=== PATIENT | female | born 1995 | race Caucasian/White ===

== ENCOUNTER 2024-10-18 08:35 | Outpatient (AMB) | payer OTHER, SELFPAY ==
--- OUTSIDE RECORDS SUMMARY | 2024-10-18 08:43 | XMS_ITS | Data Portability ---
Author Organization [facility], Main Office Address [address] [facility] [address] [place] [id number] Care Team Providers Care Clerical Adjuster Name Role Phone [facility] Middleware Solutions Architect VIRAL KEVIN Primary Care Provider [phone] Assessment Encounter Date Assessment Date Assessment LastModified by Organization Details LastModified Time 09/06/2024 09/06/2024 This service was provided using telemedicine. Patient consented to video & audio visit Patient was located other than home in the [facility]. Provider was located in the office. No other persons participated in the telemedicine visit except for the patient unless otherwise indicated here. Total time of visit was 16 minutes. [email or web address] Not available 09/06/2024 16:34:12 Plan of Treatment Reminders Order Date Submit Date Provider Last Modified By Organization Details Last Modified Time Details Appointments TELEHE ALTH15 2024 04:00P M Viral Kevin MD Not available Not available Not available Lab giardi a lambli a Ag, EIA, stool 2024 025 [facility], [address] [place], [address], 09/17/2024 08:07:22 gastro intest inal pathog ens panel, cultur e, stool 2024 025 [facility], [address] [place], [address], 09/17/2024 08:07:21 celiac diseas e serolo gy panel, serum 05/20/ 2025 05/20/2 025 [facility] (Centralized Electronic Ordering - All Locations), Patient Can Go To The Location Of Their Choice, 09/13/2024 20:08:52 Hepati tis C IgG Ab, qual, serum 2024 025 [facility], [address], [place], [address], 09/08/2024 12:06:01 HBsAg (hepat itis B surfac e Ag), EIA, serum 2024 025 [facility], [address], [place], [address], 09/08/2024 12:06:03 HIV 1 + 2, meanin gful use set 2024 025 [facility], [address], [place], [address], 09/08/2024 12:06:02 trepon mynor pallid um IgG + IgM Ab, QL, IA, serum 2024 025 [email or web address] [facility] (Centralized Electronic Ordering - All Locations), Patient Can Go To The Location Of Their Choice, 09/05/2024 10:29:05 CT + NG RNA, PCR, unspec ified specim en 2024 025 [email or web address] [facility] (Centralized Electronic Ordering - All Locations), Patient Can Go To The Location Of Their Choice, 09/05/2024 10:29:05 hepati tis B core IgM Ab, qual, serum or plasma 2024 025 [email or web address] [facility] (Centralized Electronic Ordering - All Locations), Patient Can Go To The Location Of Their Choice, 09/05/2024 10:29:05 lipid panel, serum 2024 025 [facility], [address] [facility], [facility], [place], [address], 09/08/2024 12:06:00 CBC w/ auto diff 2024 025 [facility], [address], [address], [place], [place], [address], 09/08/2024 12:06:00 TSH, ultra- sensit domi, serum 2024 025 [facility], [address], [address], [place], [place], [address], 09/08/2024 12:06:02 CMP, serum or plasma 2024 025 GRANT [facility] (Centralized Electronic Ordering - All Locations), Patient Can Go To The Location Of Their Choice, [id number] 09/08/2024 12:05:59 RPR (rapid plasma reagin ), titer, serum 2021 022 [facility], [address], [address], [place], [address], 12/16/2021 15:50:49 HIV 1+2 AB + HIV 1 p24 Ag, qualit ative immuno assay, serum 2021 022 [facility], [address], [address], [place], [place], [address], 12/16/2021 15:50:50 HBsAg (hepat itis B surfac e Ag), serum 2021 022 [facility], [address], [address], [place], [place], [address], 12/16/2021 15:50:50 hbcab (hepat itis B core Ab) igm, serum 2021 022 [facility], [address], [address], [place], [address], 12/16/2021 15:50:49 CT + NG DNA, PCR, urine 2021 022 [facility], [address], [address], [place], [address], 12/30/2021 09:20:20 hepati tis C virus Ab, serum 2021 [facility], [address] [place] [address], [facility] [address], [place], [address], 12/16/2021 15:50:49 lipid panel, serum 2021 [email or web address], [address] [place] [address], [facility] [address], [place], [place], [address], 06/24/2022 09:05:44 CBC w/ auto diff 2021 [facility], [address] [place] [address], [facility] [address], [place], [address], 12/16/2021 15:50:49 TSH, serum or plasma 2021 022 [facility], [address] [place] [address], [facility] [address], [place], [place], [address], 12/16/2021 15:50:50 CMP, serum or plasma 2021 022 [facility], [address] [place] [address], [facility] [address], [place], [place], [address], 12/16/2021 15:50:48 Referral dermat herve t referr al 2024 025 [email or web address] Not available 08/29/2024 15:37:26 neurol ogist referr karissa - pt has a histor y of headac hes and recent ly on CT and MRI noted to be a calcif icatio n on 1 cm indete rminat e focus of calcif icatio n noted in the left tempor al lobe. 2024 025 naina Schneider MD, [address] [place] [address] Dr, [address], [place], [address], 09/30/2024 12:58:22 gyneco logist referr al - Patien t to schedu le 2024 025 [email or web address] Not available 08/29/2024 15:37:26 psycho logist referr al 2024 025 [email or web address] Not available 08/29/2024 15:37:26 neurol ogist referr al - URGENT pt is zuleyma gottlieb is in [place], pt has a histor y of headac hes and recent ly on CT and MRI noted to be a calcif icatio n on 1 cm indete rminat e focus of calcif icatio n noted in the left tempor al lobe. 2022 023 YUMIKO Schneider MD, [address] [place] [address] , [place] [address], [place], [place], [address], 09/19/2024 11:58:33 psycho logist referr al 2021 022 [email or web address] Not available 07/22/2022 16:28:54 dermat ologis t referr al 2021 022 [email or web address] Not available 12/17/2021 08:59:04 ophtha lmolog ist referr al 2021 022 Not available 12/17/2021 14:52:39 gyneco logist referr al - Patien t to schedu le 2021 022 Not available 12/17/2021 08:57:25 Procedures suture remova l (PROC) 2022 023 [email or web address] In-Office Order, Internal Use Only DO Not Attach Compendium DO Not Attach Compendium, Do Not Delete/merge, [id number] 05/30/2022 13:11:25 Surgeries None record ed. Imaging None record ed. Medication Orders None record ed. Patient TargetsNo targets recorded. Patient Instructions Encounter Date Encounter Id Patient Instructions Last Modified By Organization Details Last Modified Time 12/16/2021 [id number] Well Visit, Ages 18 to 65: Care Instructions [email or web address] Not available 12/16/2021 15:50:33 Cervical Cancer Screening ckokar Not available 12/16/2021 15:50:33 When You Want to Lose Weight: Care Instructions ckokar Not available 12/16/2021 15:50:33 05/30/2022 [id number] At [facility] follow up visit, all current and discharge medications (OTC, herbal therapies, supplements) reviewed and reconciled with patient and or caregiver, including potential side effects, drug interactions, instructions, and the consequences of not taking medication. Reviewed potential barriers to medication adherence, such as side effects from medication or cost of medication. [email or web address] Not available 05/30/2022 09:29:55 08/29/2024 [id number] Well Visit, Ages 18 to 65: Care Instructions [email or web address] Not available 08/29/2024 15:11:18 Cervical Cancer Screening ckokar Not available 08/29/2024 15:11:18 When You Want to Lose Weight: Care Instructions [email or web address] Not available 08/29/2024 15:11:18 body mass index: care instructions ckokar Not available 08/29/2024 15:11:18 learning about healthy weight ckokar Not available 08/29/2024 15:11:18 09/06/2024 [id number] diarrhea: care instructions pmadden Not available 09/06/2024 16:35:26 Follow up if no improvement or if symptoms worsen. pmadden Not available 09/06/2024 16:35:57 Reason for Referral Middleware Solutions Architect Referral for Sc reening for malignant neoplasm of cervix Patient to schedule Referring Physician: Family Swathi Medicine, Encounter Date: 12/16/2021 Technical Internship Referral for M elanocytic nevus of skin Referring Physician: Family Swathi Medicine, Encounter Date: 12/16/2021 Warehouse Foreman Referral for Red right eye Referring Physician: Family Swathi Medicine, Encounter Date: 12/16/2021 Psychologist Referral for Po sitive screening for depression on PHQ-9 (Patient Health Questionnaire 9) Referring Physician: Family Mumtaz Echevarria, Encounter Date: 12/16/2021 Neurologist Referral for Rad iographic calcification URGENT pt is leaving is in [place], pt has a history of headaches and recently on CT and MRI noted to be a calcification on 1 cm indeterminate focus of calcification noted in the left temporal lobe. Referring Physician: Elli Potts, [facility], Encounter Date: 05/30/2022 Middleware Solutions Architect Referral for Sc reening for malignant neoplasm of cervix Patient to schedule Referring Physician: Viral Kevin [facility], Encounter Date: 08/29/2024 Technical Internship Referral for M elanocytic nevus of skin Referring Physician: Viral Kevin [facility], Encounter Date: 08/29/2024 Psychologist Referral for Mi xed anxiety and depressive disorder Referring Physician: Viral Kevin [facility], Encounter Date: 08/29/2024 Neurologist Referral for Rad iographic calcification pt has a history of headaches and recently on CT and MRI noted to be a calcification on 1 cm indeterminate focus of calcification noted in the left temporal lobe. Referring Physician: Viral Kevin [facility], Encounter Date: 08/29/2024 Results Created Date Observation Date Name Description Value Unit Range Abnormal Flag Note LastModifiedBy Organization Detail LastModifiedTime 05/30/1905/30/2022 saulo colon al (PROC ) done by Dr. Steph thapa Not Available In-Office Order Internal Use Only DO Not Attach Compendium DO Not Attach Compendium, Do Not Delete/merge, [id number] 05/30/2022 13:10:53 09/04/1909/07/2024 CMP14 (REFL EX HGB A1C) glucose 100 mg/dL 70-99 above high normal Not Available [facility] ([facility]) [address] [place], [address], 09/08/2024 12:05:59 09/04/19 25 09/07/2024 CMP14 (REFL EX HGB A1C) BUN 10 mg/dL 6-20 normal Not Available [facility] ([facility]) [address] [place], [address], 09/08/2024 12:05:59 09/04/19 25 09/07/2024 CMP14 (REFL EX HGB A1C) creatinine 0.88 mg/dL 0.57-1 .00 normal Not Available [facility] ([facility]) [address] [place], [address], 09/08/2024 12:05:59 09/04/19 25 09/07/2024 CMP14 (REFL EX HGB A1C) eGFR 91 mL/mi n/1.7 3 >59 normal Not Available [facility] ([facility]) [address] [place], [address], 09/08/2024 12:05:59 09/04/19 25 09/07/2024 CMP14 (REFL EX HGB A1C) BUN/creatini ne ratio 11 9-23 normal Not Available [facility] ([facility]) [address] [place], [address], 09/08/2024 12:05:59 09/04/19 25 09/07/2024 CMP14 (REFL EX HGB A1C) sodium 139 mmol/ L 134-14 4 normal Not Available [facility] ([facility]) [address] [place], [address], 09/08/2024 12:05:59 09/04/19 25 09/07/2024 CMP14 (REFL EX HGB A1C) potassium 4.0 mmol/ L 3.5-5. 2 normal Not Available [facility] ([facility]) [address] [place], [address], 09/08/2024 12:05:59 09/04/19 25 09/07/2024 CMP14 (REFL EX HGB A1C) chloride 104 mmol/ L 96-106 normal Not Available [facility] ([facility]) [address] [place], [address], 09/08/2024 12:05:59 09/04/19 25 09/07/2024 CMP14 (REFL EX HGB A1C) carbon dioxide, total 17 mmol/ L 20-29 below low normal Not Available [facility] ([facility]) [address] [place], [address], 09/08/2024 12:05:59 09/04/19 25 09/07/2024 CMP14 (REFL EX HGB A1C) calcium 9.1 mg/dL 8.7-10 .2 normal Not Available [facility] ([facility]) [address] [place], [address], 09/08/2024 12:05:59 09/04/19 25 09/07/2024 CMP14 (REFL EX HGB A1C) protein, total 6.9 g/dL 6.0-8. 5 normal Not Available [facility] ([facility]) [address] [place], [address], 09/08/2024 12:05:59 09/04/19 25 09/07/2024 CMP14 (REFL EX HGB A1C) albumin 4.5 g/dL 4.0-5. 0 normal Not Available [facility] ([facility]) [address] [place], [address], 09/08/2024 12:05:59 09/04/19 25 09/07/2024 CMP14 (REFL EX HGB A1C) globulin, total 2.4 g/dL 1.5-4. 5 Not Available [facility] ([facility]) [address] [place], [address], 09/08/2024 12:05:59 09/04/19 25 09/07/2024 CMP14 (REFL EX HGB A1C) bilirubin, total <0.2 mg/dL 0.0-1. 2 Not Available [facility] ([facility]) [address] [place], [address], 09/08/2024 12:05:59 09/04/19 25 09/07/2024 CMP14 (REFL EX HGB A1C) alkaline phosphatase 66 IU/L 44-121 normal Not Available [facility] ([facility]) [address] [place], [address], 09/08/2024 12:05:59 09/04/19 25 09/07/2024 CMP14 (REFL EX HGB A1C) AST (SGOT) 21 IU/L 0-40 normal Not Available [facility] ([facility]) [address] [place], [address], 09/08/2024 12:05:59 09/04/19 25 09/07/2024 CMP14 (REFL EX HGB A1C) ALT (SGPT) 19 IU/L 0-32 normal Not Available [facility] ([facility]) [address] [place], [address], 09/08/2024 12:05:59 09/04/19 25 09/08/2024 CMP14 (REFL EX HGB A1C) hemoglobin A1C 5.1 % 4.8-5. 6 normal Predi abete s: 5.7 - 6.4 Diabe anna: >6.4 Glyce luc contr ol for adult s with diabe anna: <7.0 Not Available [facility] ([facility]) [address] [place], [address], 09/08/2024 12:05:59 09/04/19 25 09/04/2024 CBC WITH DIFFE RENTI AL/PL ATELE T WBC 6.5 x10e3 /uL 3.4-10 .8 normal Not Available [facility] ([facility]) [address] [place], [address], 09/08/2024 12:05:59 09/04/19 25 09/04/2024 CBC WITH DIFFE RENTI AL/PL ATELE T RBC 4.91 x10e6 /uL 3.77-5 .28 normal Not Available [facility] ([facility]) [address] [place], [address], 09/08/2024 12:05:59 09/04/19 25 09/04/2024 CBC WITH DIFFE RENTI AL/PL ATELE T hemoglobin 14.6 g/dL 11.1-1 5.9 normal Not Available [facility] ([facility]) [address] [place], [address], 09/08/2024 12:05:59 09/04/19 25 09/04/2024 CBC WITH DIFFE RENTI AL/PL ATELE T hematocrit 42.5 % 34.0-4 6.6 normal Not Available [facility] ([facility]) [address] [place], [address], 09/08/2024 12:05:59 09/04/19 25 09/04/2024 CBC WITH DIFFE RENTI AL/PL ATELE T MCV 87 fL 79-97 normal Not Available [facility] ([facility]) [address] [place], [address], 09/08/2024 12:05:59 09/04/19 25 09/04/2024 CBC WITH DIFFE RENTI AL/PL ATELE T MCH 29.7 pg 26.6-3 3.0 normal Not Available [facility] ([facility]) [address] [place], [address], 09/08/2024 12:05:59 09/04/19 25 09/04/2024 CBC WITH DIFFE RENTI AL/PL ATELE T MCHC 34.4 g/dL 31.5-3 5.7 normal Not Available [facility] ([facility]) [address] [place], [address], 09/08/2024 12:05:59 09/04/19 25 09/04/2024 CBC WITH DIFFE RENTI AL/PL ATELE T RDW 12.9 % 11.7-1 5.4 Not Available [facility] ([facility]) [address] [place], [address], 09/08/2024 12:05:59 09/04/19 25 09/04/2024 CBC WITH DIFFE RENTI AL/PL ATELE T platelets 267 x10e3 /uL 150-45 0 normal Not Available [facility] ([facility]) [address] [facility], [place], [address], 09/08/2024 12:05:59 09/04/19 25 09/04/2024 CBC WITH DIFFE RENTI AL/PL ATELE T neutrophils 61 % not estab. normal Not Available [facility] ([facility]) [address] [facility], [place], [address], 09/08/2024 12:05:59 09/04/19 25 09/04/2024 CBC WITH DIFFE RENTI AL/PL ATELE T lymphs 24 % not estab. normal Not Available [facility] ([facility]) [address] [place], [address], 09/08/2024 12:05:59 09/04/19 25 09/04/2024 CBC WITH DIFFE RENTI AL/PL ATELE T monocytes 11 % not estab. normal Not Available [facility] ([facility]) [address] [place], [address], 09/08/2024 12:05:59 09/04/19 25 09/04/2024 CBC WITH DIFFE RENTI AL/PL ATELE T eos 3 % not estab. normal Not Available [facility] ([facility]) [address] [place], [address], 09/08/2024 12:05:59 09/04/19 25 09/04/2024 CBC WITH DIFFE RENTI AL/PL ATELE T basos 1 % not estab. normal Not Available [facility] ([facility]) [address] [facility], [place], [address], 09/08/2024 12:05:59 09/04/19 25 09/04/2024 CBC WITH DIFFE RENTI AL/PL ATELE T immature cells MARKETING PROPOSAL COORDINATOR Not Available [facility] ([facility]) [address] [place], [address], 09/08/2024 12:05:59 09/04/19 25 09/04/2024 CBC WITH DIFFE RENTI AL/PL ATELE T neutrophils (absolute) 4.0 x10e3 /uL 1.4-7. 0 normal Not Available [facility] ([facility]) [address] [place], [address], 09/08/2024 12:05:59 09/04/19 25 09/04/2024 CBC WITH DIFFE RENTI AL/PL ATELE T lymphs (absolute) 1.6 x10e3 /uL 0.7-3. 1 normal Not Available [facility] ([facility]) [address] [place], [address], 09/08/2024 12:05:59 09/04/19 25 09/04/2024 CBC WITH DIFFE RENTI AL/PL ATELE T monocytes(ab solute) 0.7 x10e3 /uL 0.1-0. 9 normal Not Available [facility] ([facility]) [address] [place], [address], 09/08/2024 12:05:59 09/04/19 25 09/04/2024 CBC WITH DIFFE RENTI AL/PL ATELE T eos (absolute) 0.2 x10e3 /uL 0.0-0. 4 normal Not Available [facility] ([facility]) [address] [place], [address], 09/08/2024 12:05:59 09/04/19 25 09/04/2024 CBC WITH DIFFE RENTI AL/PL ATELE T baso (absolute) 0.1 x10e3 /uL 0.0-0. 2 normal Not Available [facility] ([facility]) [address] [place], [address], 09/08/2024 12:05:59 09/04/19 25 09/04/2024 CBC WITH DIFFE RENTI AL/PL ATELE T immature granulocytes 0 % not estab. Not Available [facility] ([facility]) [address] [place], [address], 09/08/2024 12:05:59 09/04/19 25 09/04/2024 CBC WITH DIFFE RENTI AL/PL ATELE T immature grans (abs) 0.0 x10e3 /uL 0.0-0. 1 Not Available [facility] ([facility]) [address] [facility], [place], [address], 09/08/2024 12:05:59 09/04/19 25 09/04/2024 CBC WITH DIFFE RENTI AL/PL ATELE T NRBC MARKETING PROPOSAL COORDINATOR Not Available [facility] ([facility]) [address] [facility], [place], [address], 09/08/2024 12:05:59 09/04/19 25 09/04/2024 CBC WITH DIFFE RENTI AL/PL ATELE T hematology comments: MARKETING PROPOSAL COORDINATOR Not Available [facility] ([facility]) [address] [place], [address], 09/08/2024 12:05:59 09/04/19 25 09/07/2024 LIPID PANEL cholesterol, total 174 mg/dL 100-19 9 normal Not Available [facility] ([facility]) [address] [place], [address], 09/08/2024 12:06:00 09/04/19 25 09/07/2024 LIPID PANEL triglyceride s 107 mg/dL 0-149 normal Not Available [facility] ([facility]) [address] [place], [address], 09/08/2024 12:06:00 09/04/19 25 09/07/2024 LIPID PANEL HDL cholesterol 51 mg/dL >39 normal Not Available [facility] ([facility]) [address] [facility], [place], [address], 09/08/2024 12:06:00 09/04/19 25 09/07/2024 LIPID PANEL VLDL cholesterol geneva 19 mg/dL 5-40 Not Available [facility] ([facility]) [address] [place], [address], 09/08/2024 12:06:00 09/04/19 25 09/07/2024 LIPID PANEL LDL chol calc ([facility]) 104 mg/dL 0-99 above high normal Not Available [facility] ([facility]) [address] [facility], [place], [address], 09/08/2024 12:06:00 09/04/19 25 09/07/2024 LIPID PANEL LDL calc comment: MARKETING PROPOSAL COORDINATOR Not Available [facility] ([facility]) [address] [facility], [place], [address], 09/08/2024 12:06:00 09/04/19 25 09/06/2024 CHLAM YDIA/ GC AMPLI FICAT ION chlamydia trachomatis, CHAYA Negati ve negati ve Not Available [facility] ([facility]) [address] [place], [address], 09/08/2024 12:06:01 09/04/19 25 09/06/2024 CHLAM YDIA/ GC AMPLI FICAT ION neisseria gonorrhoeae, CHAYA Negati ve negati ve Not Available [facility] ([facility]) [address] [place], [address], 09/08/2024 12:06:01 09/04/19 25 09/05/2024 HCV ANTIB TD RFX TO QUANT PCR HCV Ab Non Reacti ve non reacti ve Not Available [facility] ([facility]) [address] [place], [address], 09/08/2024 12:06:01 09/04/19 25 09/05/2024 HCV ANTIB TD RFX TO QUANT PCR interpretati on: Commen t Not infec cassi with HCV unles s early or acute infec tion is suspe cted (whic h may be delay ed in an immun ocomp romis ed indiv idual ), or other evide nce exist s to indic ate HCV infec tion. Not Available [facility] ([facility]) [address] [facility], [place], [address], 09/08/2024 12:06:01 09/04/19 25 09/05/2024 T PALLI DUM SCREE SOPHIA CASCA DE T pallidum antibodies Non Reacti ve non reacti ve Not Available [facility] ([facility]) [address] [facility], [place], [address], 09/08/2024 12:06:01 09/04/1909/05/2024 HIV AB/P2 4 AG WITH REFLE X HIV Ab/P24 Ag screen Non Reacti ve non reacti ve HIV-1 /HIV- 2 antib odies and HIV-1 p24 antig en were NOT detec cassi. There is no labor atory evide nce of HIV infec tion. HIV Negat domi Not Available [facility] ([facility]) [address] [facility], [place], [address], 09/08/2024 12:06:02 09/04/19 25 09/07/2024 TSH RFX ON ABNOR MAL TO FREE T4 TSH 2.170 uIU/m L 0.450- 4.500 normal Not Available [facility] ([facility]) [address] [facility], [place], [address], 09/08/2024 12:06:02 09/04/1909/05/2024 HBSAG SCREE N HBsAg screen Negati ve negati ve Not Available [facility] ([facility]) [address] [facility], [place], [address], 09/08/2024 12:06:03 09/04/19 25 09/05/2024 HEP B CORE AB, IGM hep B core Ab, IgM Negati ve negati ve Not Available [facility] ([facility]) [address] [facility], [place], [address], 09/08/2024 12:06:04 09/11/19 25 09/11/2024 SUZY C DISEA SE PANEL immunoglobul in A, qn, serum 147 mg/dL 87-352 normal Not Available [facility] ([facility]) [address] [facility], [place], [address], 09/13/2024 20:08:52 09/11/19 25 09/13/2024 SUZY C DISEA SE PANEL endomysial antibody IgA Negati ve negati ve Not Available [facility] ([facility]) [address] [facility], [place], [address], 09/13/2024 20:08:52 09/11/19 25 09/13/2024 SUZY C DISEA SE PANEL T-transgluta minase (ttg) IgA <2 U/mL 0-3 Negat domi 0 - 3 Weak Posit domi 4 - 10 Posit domi >10 Tissu e Trans gluta nancy e (tTG) has been ident ified as the endom ysial antig en. Studi es have demon str- ated that endom ysial IgA antib odies have over 99% speci ficit y for glute n sensi tive enter opath y. Not Available [facility] ([facility]) [address] [facility], [place], [address], 09/13/2024 20:08:52 09/13/19 25 09/15/2024 STOOL CULTU RE salmonella/s higella screen Final report Not Available [facility] ([facility]) [address] [facility], [place], [address], 09/17/2024 08:07:21 09/13/19 25 09/15/2024 STOOL CULTU RE result 1 COMMEN T No Salmo luis alberto or Shige lla recov ered. Not Available [facility] ([facility]) [address] [facility], [place], [address], 09/17/2024 08:07:21 09/13/19 25 09/15/2024 STOOL CULTU RE E coli shiga toxin EIA Negati ve negati ve Not Available [facility] ([facility]) [address] [facility], [place], [address], 09/17/2024 08:07:21 09/13/19 25 09/17/2024 STOOL CULTU RE campylobacte r culture Final report Not Available [facility] ([facility]) [address] [facility], [place], [address], 09/17/2024 08:07:21 09/13/19 25 09/17/2024 STOOL CULTU RE result 1 COMMEN T No Campy lobac ter speci es isola cassi. Not Available [facility] ([facility]) [address] [facility] [address], [place], [address], 09/17/2024 08:07:21 09/13/19 25 09/14/2024 GIARD IA LAMBL IA AG, EIA giardia lamblia Ag, EIA Negati ve negati ve Not Available [facility] ([facility]) [address] [facility] [address], [place], [address], 09/17/2024 08:07:22 05/25/19 23 05/25/2022 US, echo ardio gram, trans thora cic, limit ed No observ ation record ed. [email or web address] Not Available 2022 18:49:05 08/30/19 25 05/28/2022 MRI, head, w/wo contr ast No observ ation record ed. [email or web address] Not Available 2024 15:30:51 08/30/19 25 05/24/2022 CT, head + brain , w/o contr ast No observ ation record ed. Not Available 2024 15:32:08 Result Notes None recorded. Problems Name Problem SNOMED Code Status Onset Date Resolution Date Notes Provider Name and Address Organization Details Recorded Time History of gallstones 046806642 Active 2019 Georgina luke [place] null, [facility] 2 15:27:01 Radiograph ic calcificat ion 717722855 Active 2022 1 cm calcificat ion noted in the left temporal lobe, noted on MRI, needs cotinued follow-up ELLI POTTS MD [address], [place], [address], [facility] 3 08:11:10 Uterine leiomyoma 37538407 Active 2022 ELLI POTTS MD [address], [place], [address], [facility] 3 08:11:13 Problem Notes None recorded. Procedures Surgical History Date Name Laterality Status Provider Name and Address Organization Details Recorded Time 05/30/19 23 Suture/Staple removal completed ELLI POTTS MD [address] [facility], [place], [address], [facility] 05/30/2022 10:11:38 10/05/19 20 Laparoscopic cholecystectomy completed Georgina souza MA [facility] 12/16/2021 15:25:51 Imaging Results None recorded. Procedure Notes None recorded. Medical Equipment None Reported. Allergies No known drug allergies Medications Name Sig Start Date Stop Date Status Note LastModified by Organization Details LastModified Time multivitami n tablet Take 1 tablet every day by oral route. active Not Available Not Available No t Available fluconazole 100 mg tablet TAKE 1 TABLET BY MOUTH EVERY 3 DAYS 12/16 completed Not Available Not Available Not Available acetaminoph en 325 mg tablet Take 2 tablets every 4 hours by oral route as directed. 05/30 completed Not Available Not Available Not Available cephalexin 500 mg capsule TAKE 1 CAPSULE BY MOUTH 4 TIMES A DAY FOR 5 DAYS 05/30 completed Not Available Not Available Not Available erythromyci n 5 mg/gram (0.5 %) eye ointment APPLY A 1CM RIBBON TO CONJUNCTI SOUMYA SAC OF AFFECTED EYE(S) 4 TIMES A DAY FOR 7 DAYS 12/16 completed Not Available Not Available Not Available ibuprofen 400 mg tablet TAKE 1 TABLET BY MOUTH EVERY 4 HOURS WITH FOOD NEEDED FOR PAIN FOR 7 DAYS 08/29 completed Not Available Not Available Not Available tobramycin 0.3 %-dexametha sone 0.1 % eye drops,suspe nsion INSTILL 1 DROP IN RIGHT EYE EVERY 4 HOURS 12/16 completed Not Available Not Available Not Available nitrofurant oin monohydrate /macrocryst als 100 mg capsule TAKE 1 CAPSULE BY MOUTH TWICE A DAY FOR 5 DAYS 12/16 completed Not Available Not Available Not Available chlorhexidi ne gluconate 0.12 % mouthwash SWISH WITH 15ML BY MOUTH TWICE A DAY FOR 7 DAYS *SPIT-DO NOT SWALLOW 08/29 completed Not Available Not Available Not Available Sronyx 0.1 mg-20 mcg tablet TAKE 1 TABLET BY MOUTH EVERY DAY DIRECTED 12/16 completed Not Available Not Available Not Available Vitals Date Recorded Body height Body mass index (BMI) Body weight Heart rate Oxygen saturation Oxygen saturation in Arterial blood by Pulse oximetry Body temperature Systolic blood pressure Diastolic blood pressure Provider Name and Address Organization Details Last Updated DateTime 3 166.37 cm 29.3 kg/m2 40745.0 3 g 70 /min 97 % 97 % 98.5 [degF] 97 mm[Hg] 70 mm[Hg] [facility]ry An [facility] 3 09:37:54 Date Recorded Body height Body mass index (BMI) Body weight Heart rate Oxygen saturation Oxygen saturation in Arterial blood by Pulse oximetry Body temperature Systolic blood pressure Diastolic blood pressure Provider Name and Address Organization Details Last Updated DateTime 5 166.37 cm 30 kg/m2 88221.4 g 73 /min 99 % 99 % 98.3 [degF] 119 mm[Hg] 67 mm[Hg] Georgina luke MA [facility] 5 14:42:41 Date Recorded Body height Provider Name an d Address Organization Details Last Updated DateTime 09/06/2024 166.37 cm Belkys Hernandez, [place] [facility] 09/06/2024 15:58:55 Date Recorded Body height Body mass index (BMI) Body weight Heart rate Oxygen saturation Oxygen saturation in Arterial blood by Pulse oximetry Body temperature Systolic blood pressure Diastolic blood pressure Provider Name and Address Organization Details Last Updated DateTime 166.37 cm 28.8 kg/m2 44997.2 6 g 64 /min 99 % 99 % 98.78 [degF] 105 mm[Hg] 64 mm[Hg] Georgina luke MA [facility] 15:31:27 Social History Question Answer Notes LastModified by Organizat ion Details LastModified Time Tobacco Smoking Status Never Smoker AYESHA Medina [facility] 12/16/2021 15:32:11 Is Blood Transfusion Acceptable In An Emergency? Yes Information not available 12/16/2021 What Is Your Level Of Caffeine Consumption? Occasional Coffee Information not available 12/16/2021 How Much Tobacco Do You Chew? None Information not available 12/16/2021 What Type Of Diet Are You Following? REGULAR Information not available 12/16/2021 Which Illicit Or Recreational Drugs Have You Used? None Information not available 12/16/2021 Do You Take Precautions To Prevent Distracted Driving? Yes Information not available 12/16/2021 How Often Do You Need To Have Someone Help You When You Read Instructions, Pamphlets, Or Other Written Material From Your Doctor Or Pharmacy? Sometimes Information not available 12/16/2021 How Many Children Do You Have? 0 Information not available 12/16/2021 Do You Use Protection During Sex? Always Information not available 12/16/2021 Do You Use Your Seat Belt Or Car Seat Routinely? Yes Information not available 12/16/2021 Are You Sexually Active? No Information not available 12/16/2021 Do You Have Smoke And Carbon Monoxide Detectors In Your Home? Yes Information not available 12/16/2021 Are You Passively Exposed To Smoke? Yes Information not available 12/16/2021 How Much Tobacco Do You Smoke? No Information not available 12/16/2021 Do You Use Sunscreen Routinely? Yes Information not available 12/16/2021 Sex: Unknown Functional Status Question Answer Note LastModified by Organizat ion Details LastModified Time Do you use any illicit or recreational drugs? No Information not available 12/16/2021 Do you or have you ever used any other forms of tobacco or nicotine? No Information not available 12/16/2021 What is your level of alcohol consumption? Occasional Information not available 12/16/2021 Do you or have you ever used smokeless tobacco? Never used smokeless tobacco Information not available 12/16/2021 Are you currently employed? Yes Information not available 12/16/2021 Are you able to walk? YESWOREST Information not available 12/16/2021 Are you able to care for yourself? 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 Occasional 3-4 x week; walking and yoga Information not available 12/16/2021 Mental Status None recorded. Family History Relationship Description Onset Age of this Age Resolved Age Notes LastModified by Organization Details LastModified Time Mother Essential hypertension [email or web address] s Not available 08/29/2024 14:43:40 Father Mixed hyperlipidem ia [email or web address] s Not available 08/29/2024 14:43:48 Maternal Grandmother Type 2 diabetes mellitus bsolivanmatto s Not available 08/29/2024 14:44:00 Maternal Grandfather Congestive heart failure [email or web address] s Not available 08/29/2024 14:44:14 Medical History No medical history recorded. Gynecological HistoryNo gynecological history recorded. Obstetrics History GPAL:G 0 P 0 0 0 0 Immunizations Vaccine Type Date Status Note Provider Nam e and Address Organization Details Recorded Time DTaP 6 completed AYESHA Sevilla [facility] 05/30/2022 09:31:54 DTaP 6 completed AYESHA Sevilla, [facility] 05/30/2022 09:31:54 DTaP 6 completed AYESHA Sevilla, [facility] 05/30/2022 09:31:54 DTaP 7 completed AYESHA Sevilla, [facility] 05/30/2022 09:31:54 DTaP 1 completed AYESHA Sevilla, [facility] 05/30/2022 09:31:54 Hib (HbOC) 6 completed AYESHA Sevilla [facility] 05/30/2022 09:31:54 Hib (HbOC) 6 completed AYESHA Sevilla [facility] 05/30/2022 09:31:54 Hib (HbOC) 6 completed AYESHA Sevilla [facility] 05/30/2022 09:31:54 Hib (HbOC) 7 completed AYESHA Sevilla [facility] 05/30/2022 09:31:54 Hep A, ped/adol, 2 dose 0 completed AYESHA Sevilla [facility] 05/30/2022 09:31:54 Hep A, ped/adol, 2 dose 1 completed AYESHA Sevilla [facility] 05/30/2022 09:31:54 Hep B, adolescent or pediatric 6 completed AYESHA Sevilla [facility] 05/30/2022 09:31:54 Hep B, adolescent or pediatric 6 completed AYESHA Sevilla, [facility] 05/30/2022 09:31:54 Hep B, adolescent or pediatric 6 completed AYESHA Sevilla, [facility] 05/30/2022 09:31:54 HPV, unspecified formulation 1 completed AYESHA Sevilla, [facility] 05/30/2022 09:31:54 HPV, unspecified formulation 2 completed AYESHA Sevilla, [facility] 05/30/2022 09:31:54 HPV, unspecified formulation 4 completed AYESHA Sevilla, [facility] 05/30/2022 09:31:54 MMR 7 completed AYESHA Sevilla, [facility] 05/30/2022 09:31:54 MMR 0 completed AYESHA Sevilla, [facility] 05/30/2022 09:31:54 meningococcal C conjugate 8 completed AYESHA Sevilla [facility] 05/30/2022 09:31:54 meningococcal C conjugate 2 completed AYESHA Sevilla [facility] 05/30/2022 09:31:54 IPV 6 completed AYESHA Sevilla [facility] 05/30/2022 09:31:54 IPV 6 completed AYESHA Sevilla, [facility] 05/30/2022 09:31:54 IPV 6 completed AYESHA Sevilla [facility] 05/30/2022 09:31:54 IPV 1 completed Ary Ruckerby NaseemAYESHA bailey [facility] 05/30/2022 09:31:54 Tdap 8 completed Ary MarkAYESHA Garrison, [facility] 05/30/2022 09:31:54 Hep B, unspecified formulation 7 completed Georgina Ponce [place] randolph [facility] 12/16/2021 15:33:02 Influenza, split virus, quadrivalent, PF 2 completed Georgina Ponce AYES[place] agustín [facility] 12/16/2021 15:33:02 COVID-19, mRNA, LNP-S, PF, 100 mcg/0.5mL dose or 50 mcg/0.25mL dose 1 completed Georgina Ponce [place] agustín [facility] 12/16/2021 15:33:02 COVID-19, mRNA, LNP-S, PF, 100 mcg/0.5mL dose or 50 mcg/0.25mL dose 1 completed Georgina Ponce AYES[place] randolph [facility] 12/16/2021 15:33:02 MMR 7 completed Georgina Ponce AYES[place] randolph [facility] 12/16/2021 15:33:02 COVID-19, mRNA, LNP-S, PF, 100 mcg/0.5mL dose or 50 mcg/0.25mL dose 2 completed Georgina Ponce AYESHA agustín [facility] 12/16/2021 15:33:02 Tdap 3 completed Ary Gusmanlynn AYESHA randolph [facility] 05/30/2022 09:31:54 Influenza, MDCK, trivalent, PF 5 completed Not Available [facility] 09/06/2024 12:37:29 Past Encounters Encounter ID Performer Location Encounter Start Date Encounter Closed Date Diagnosis/Indication Diagnosis SNOMED-CT Code Diagnosis ICD10 Code Diagnosis Note [id number] Viral Kevin MD Main Office [address] [facility] [place] [address] 12/16/2021 15:15:29 12/16/2021 16:10:07 Adult health examination 311964297 Z00.00 Patient was counseled on healthy diet, exercise and nutrition due to Body mass index is 28.8 kg/m . Breast/Col on CA hx?: grandma had breast CA, pt is asymptomat ic. Last Pap smearDate: Result:Jose n: referral provided Bone density scanDate:R esult:Plan : not due Vaccines:T dAP: 04/29/07Zos ter rec: not [id number]: Not dueInfluen za: advised to get a pharm.Covi d: 09/01/20, 09/29/20, 04/27/21 Routine labs today, with STI workup Immunizati on status reviewed. Will screen based on risk factors. Regular dental and ophtho care advised as well as seat belt and sunscreen use. Distracted driving discussed. Medication reconciled . Fatigue 00638383 R53.83 Body mass index 25-29 - overweight 814221489 E66.3 Z68.25 - Diet and exercise discussed- Encouraged to loose weight. Goal set to loose weight at 1-1.5 Lbs/week- Avoid starchy and fatty food- Encouraged use of green vegetables and fruits Overweight 188921314 E66 .3 Venereal d isease screening 331028554 Z11.3 Screening for malignant neoplasm of cervix 242171525 Z12.4 Patient ne w to provider [id number] 06712 Z76.89 previous chart reviewed Hyperlipidemia 89868830 E78.5 Positive s creening for depression on PHQ-9 (Patient Health Questionnaire 9) 0553246269 66484 Z13.89 Doesn't bother Lola, denies thoughts of self harm or harming others.She will work on mindful exercises and will seek therapist. Pt to check with insurance for list of places to schedule and pysch today/talk space also advised. Melanocyti c nevus of skin 446612905 D22.9 Red right eye 5103623254 0821337 R68.89 [id number] Viral Kevin MD Main Office [address] [place] [address] 05/26/2022 08:40:00 05/26/2022 18:11:11 [id number] ELLI POTTS MD Main Office [address] [facility] [address] [place] [address] 05/30/2022 09:24:50 05/30/2022 10:03:23 Transition of care from emergency department to self-care 7524998867 35427 Z76.89 - ED note reviewed Uterine leiomyoma 847460 05 D25.9 - noted on transvagin al ultrasound : Submucosal fibroid in the fundus measuring up to 2.8 cm.- pt had noted increased bleeding with her last menstrual cycle- pt advised to keep menstrual diary- pt counselled on signs of anemia Vasovagal syncope 425901 005 R55 - likely due to dehydratio n from diarrhea- no repeat episodes since ED visit Radiograph ic calcification 623012399 R93.89 - CT head showing: A 1 cm indetermin ate focus of calcificat ion noted in the left temporal lobe.- MRI head showing: Linear susceptibi lity artifact in the left posterior insula correspond ing to calcificat ion seen on CT, with linear T2 hypointens e signal but no edema or mass effect. Adjacent small branching vessel is noted, most likely reflecting a developmen luis venous anomaly rather than other vascular malformati on, though not definitive ly characteri zed due to small size. This is favored to reflect a partially calcified cavernous malformati on with adjacent developmen luis venous anomaly.- Will need continued follow-up- neurology referral placed Removal of suture 876550 01 Z48.02 - 6 sutures removed- no signs of infection noted [id number] Viral Kevin MD Main Office [address] [facility] [address] [place] [address] 08/29/2024 14:26:26 08/29/2024 15:37:26 Adult health examination 113629527 Z00.00 Patient was counseled on healthy diet, exercise and nutrition due to Body mass index is 30 kg/m . Breast/Col on CA hx?: grandma had breast CA, pt is asymptomat ic. Last Pap smearDate: Notes had done in esult: Plan: advised to get PAP result. Bone density scanDate:R esult:Plan : not due Vaccines:T dAP: 05/24/22Zost er rec: not [id number]: Not dueInfluen za: 06/22/2024 Covid:enco uraged updated vaccine Routine labs today, with STI workup Immunizati on status reviewed. Will screen based on risk factors. Regular dental and ophtho care advised as well as seat belt and sunscreen use. Distracted driving discussed. Medication reconciled . Fatigue 40820429 R53.83 R73.01 Screening for malignant neoplasm of cervix 711690776 Z12.4 Hyperlipidemia 11795545 E78.5 Melanocyti c nevus of skin 651233127 D22.9 Radiograph ic calcification 023351833 R93.89 - CT head showing: A 1 cm indetermin ate focus of calcificat ion noted in the left temporal lobe.- MRI head showing: Linear susceptibi lity artifact in the left posterior insula correspond ing to calcificat ion seen on CT, with linear T2 hypointens e signal but no edema or mass effect. Adjacent small branching vessel is noted, most likely reflecting a developmen luis venous anomaly rather than other vascular malformati on, though not definitive ly characteri zed due to small size. This is favored to reflect a partially calcified cavernous malformati on with adjacent developmen luis venous anomaly.- Will need continued follow-up- neurology referral placed Venereal d isease screening 155717264 Z20.2 Z11.3 Z72.89 Body mass index 30+ - obesity 531047161 E66.9 - Diet and exercise discussed- Encouraged to loose weight. Goal set to loose weight at 1-1.5 Lbs/week- Avoid starchy and fatty food- Encouraged use of green vegetables and fruits Mixed anxi ety and depressive disorder 538168027 F41.8 Doesn't bother Lola, denies thoughts of self harm or harming others.She will work on mindful exercises and will seek therapist. Pt to check with insurance for list of places to schedule and pysch today/talk space also advised. [id number] [facility] Dew[facility] [address], [place] [address] 09/06/2024 12:36:25 09/07/2024 10:22:14 Diarrhea 50023021 R19.7 better now, able to go in to work today - no bm todayno use of abx recentlyif diarrhea returns then check stool studiesmea nwhile, rec BRAT diet, and cont prn gatorade Abnormal feces 041838128 R19.5 ? h/o ibs - check labs to r/o celiac dz Health Concerns Section Related Observation LastModified by Organization Detai ls LastModified Time None Recorded Concern Status LastModified by Organization Details LastModified Time None Recorded Advance Directives Directive None Recorded Payers Insurance Date Sequence Insurance Name Policy Number Policy Thompson Covered Member ID Thompson Member ID Guarantor Name 09/19/2024 1 SYDNEY [id number] Lola Love [id number] Lola Love 08/26/2024 1 [id number] [id number] Lola Love [id number] Lola Love Notes Date Note Type Note Provider Name and Address Organization Details Recorded Time 12/16/2021 text/html Patient present for well adult visit Complaints: Is not using ASA. 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 2-6 drinks of cocktailstobacco use: deniesspf/derm: spf use advised. Denies abnormal moles. Dental: follows 2x/year, up to date.Eye: due, advised follow up.Diet: regular diet, no restrictionsActivity: 3-4x/week yoga. Viral Kevin MD [address] [address], [place], [address], [facility] 12/16/2021 16:01:49 05/26/2022 text/html Emergency Depart ment Follow-Up RecordReported bypatient.Discharge Informationname of ED [facility]; emergency department discharge date: (Please enter in format 'MM/DD/YYYY') (05/24/2022); date of follow-up phone call: (Please enter in format 'MM/DD/YYYY') (05/25/2022)Notes: Medicare covered inpatient stay? no Discharge Summary available? yes 26 year old female presented to [facility] [place] [place] ED after sustaining syncopal episode at home. Patient noted 2 days of persistent cough, cold symptoms and watery diarrhea. Due to syncopal episode patient sustain laceration to the face. Scan were ordered within normal limit ,noted on ultrasound uterine fibroid recommended to follow up with CADD OPERATOR.Labs completed suspicious for infection started on antibiotic [employer] outreach call to patient regarding discharge status no answer left detailed message on voice mail. Viral Kevin MD [address] [facility] [address], [place], [address], [facility] 05/26/2022 18:11:09 05/30/2022 text/html Emergency Depart ment Follow-Up RecordReported bypatient.Discharge Informationname of ED [facility]; emergency department discharge date: (Please enter in format 'MM/DD/YYYY') (05/24/2022); date of follow-up phone call: (Please enter in format 'MM/DD/YYYY') (05/25/2022)Notes:[facility] covered inpatient stay? no Discharge Summary available? yes 26 year old female presented to [facility] [place] [place] ED after sustaining syncopal episode at home. Patient noted 2 days of persistent cough, cold symptoms and watery diarrhea. Due to syncopal episode patient sustain laceration to the face. Scan were ordered within normal limit ,noted on ultrasound uterine fibroid recommended to follow up with CADD OPERATOR.Labs completed suspicious for infection started on antibiotic [employer] outreach call to patient regarding discharge status no answer left detailed message on voice mail.HeadacheReported bypatient.Location[facility] Quality:similar to previous headaches Severity:mild Duration:intermittent Context:not related to trauma Aggravating factors:ibuprofen does help Alleviating factors:OTC medication Associated Symptoms:no vomiting; tearing/watery eyes; no confusion; no slurred speech; no preceeding aura; normal feeling/sensation; no dizziness; no sleep disturbances; no nosebleeds; no hoarseness; no sore throat; no hearing loss;photophobia;doubl e vision(sometimes)Notes :Chronic problem, pt mentions she will get headaches approximately 3 times weekly for which she takes ibuprofen as needed. Lola Love is a 26 year old F who presented to the for ED follow-up. Today, patient mentions she is feeling better. She denies any vomiting or abdominal pain. Pt also had no repeated episodes of syncope. Pt mentions that she has been having some headaches however this is a chronic problem. Pt also presents for suture removal. ELLI POTTS MD [address] [facility] [address], [place], [address], [facility] 05/30/2022 15:23:39 08/29/2024 text/html Here for PE les mckenna. Reviewed chronic medications and medical problems. Discussed screening guidelines as well as goals for fitness and weight management.Recently returned from [facility] June 19. Viral Kevin MD [address] [facility] [address], [place], [address], [facility] 08/29/2024 15:18:22 09/06/2024 text/html Pt has been havi ng abdominal discomfort for the past 5 days,with diarrhea . Pt says today no diarrhea,but,she is very bloated. Grandmother with similar symptoms ,she has been staying with her. as per recent pt case:Hi, I've been experiencing some tummy problems since about evening. I've had diarrhea(mostly just water), bloating, and most recently what seems like bloating but causes sharp pains in my abdomen/chest/shoulder area if that makes sense. I've tried over the counter medicines(immodium and gasx) to relieve the symptoms, but I'm still having a hard time. It's caused me to not be able to go to work as the bathroom is my best friend. I'm unsure of what I should do next, which is why I'm sending this message. Thank you. ave ~ 10 watery bm's/day - but none today - able to go in to work, no further lower abd pain - still bloated but overall sig betterno recent abxdoes recall eating pork chops, rice, broccoli - not out of the usual, nothing undercookedgrandmother better now toocurr - no other sxs - no f/c, abd pain, brbprno use of gas-x or imodium in a few daysdrinking gatorade/pedialyte Minesh Bird PA-C [address] [address], [place], [address], [facility] 09/06/2024 16:36:16 OBGyn Episode No OBEpisode recorded.
--- NOTE | 2024-10-18 09:01 | MHC.OFFVIS ---
Intake Visit Reasons: Headaches Allergies No Known Allergies Allergy (Verified 10/17/24 15:28) Medication List - Last Reconciled 10/18/24 by Madeline Ojeda MD multivitamin 1 tab PO DAILY HPI Comments Details: This is a 29-year-old right-handed woman in good health, who comes in for evaluation of headaches.? She's had regular headache since high school , related to stress, and usually relieved by a couple of Tylenol.? Currently, these occur about once a week.? She also suffers from more severe migraine type headaches when she gets nausea, dizziness and photophobia. ?These are currently occurring about once a week and lasting 2 days.? She can function with the migraine ?after taking either ibuprofen or Tylenol.? There is no family history of migraine.? There is no aura preceding the headache.? Possible triggers include menstrual cycles, stress and lack of sleep.? She describes the migraine as a bilateral pounding headache with nausea and photophobia. [facility] Medical History (Updated 10/18/24 @ 09:32 by Madeline Ojeda MD) History of gallstones Uterine leiomyoma Surgical History (Updated 10/17/24 @ 15:46 by Madison Barragan MA) Hx laparoscopic cholecystectomy Family History (Updated 10/17/24 @ 15:31 by Madison Barragan MA) Mother Essential (primary) hypertension Father Mixed hyperlipidemia Maternal Grandmother Type 2 diabetes mellitus Maternal Grandfather Congestive heart failure Social History (Updated 10/17/24 @ 15:33 by Madison Barragan MA) Alcohol intake: current Comment: Occasional Patient Tobacco Use Status: Never used Tobacco Use of substances other than those prescribed or required for medical reasons: No Review of Systems Const Reports headache(s) ENT Reports headache(s) Neuro Reports headache(s) Psych Reports abnormal sleep pattern (Teeth grinding. Occasional difficulty falling asleep. Gets 6 hrs sleep) Physical Exam Neuro Other: Mini Mental Status Exam Level of Consciousness:?Alert.? Orientation:?Knows correct year, month, date, day and season,?Knows correct city, county and state. Knows correct location and floor.? Registration:?Able to register 3 objects.? Attention:?Serial 7's performed accurately.? Recall:?Able to recall 3 out of 3 objects.? Language:?Normal spontaneous speech, fluency, repetition, ,naming, comprehension, reading and writing.? Total Score:?30/30. Cognition (Neuro): normal cognition Gait exam (Neuro): Normal gait present Motor exam (neuro): 5/5 motor strength present throughout Sensory Exam: double simultaneous stimulation for sensation normal Deep tendon reflexes (DTR's): Right triceps reflex intensity grade: 2+, Left triceps reflex intensity grade: 2+, Rt Biceps (C5, C6): 2+, Left biceps reflex intensity grade: 2+, Right brachioradialis reflex intensity grade: 2+, Left brachioradialis reflex intensity grade: 2+, Right patellar reflex intensity grade: 2+, Left patellar reflex intensity grade: 2+, Right ankle reflex intensity grade: 2+ and Left ankle reflex intensity grade: 2+ Plantar Reflex Responses: downgoing: right and left Coordination: [id number] test normal Romberg Test: Negative Pupils: Normal pupillary reactivity/response: bilateral Assessment & Plan Assessment & Plan (1) Migraine without aura: Code(s): G43.009 - Migraine without aura, not intractable, without status migrainosus Category: Medical (2) Tension headache: Code(s): G44.209 - Tension-type headache, unspecified, not intractable Category: Medical Plan Keep migraine calendar. Sumatriptan 100mg PRN for abortive therapy as prescribed Use Tylenol/ Ibuprofen for tension headache upto 4/ week Medications: New sumatriptan succinate take 1 tab at onset of headache; if no relief, may repeat 1 tab after at least 2 hrs; max = 2 tabs/24 hrs PO 9 tabs 2RF Coding Level of Care Code New Pt Level 4 (28365) Diagnoses Migraine without aura G43.009 Tension headache G44.209
== END 2024-10-18 09:16 | disposition home or self-care (01) ==
LOC: HO.HSM 08:35
PROVIDERS: PCP Family Medicine; Visit Provider Psychiatry & Neurology Neurology
DX: G43.009 Migraine without aura, not intractable, without status migrainosus (principal); G44.209 Tension-type headache, unspecified, not intractable
CPT/HCPCS: 99204

== ENCOUNTER 2025-01-10 09:01 | Outpatient (AMB) | payer OTHER, SELFPAY ==
--- NOTE | 2025-01-10 09:11 | MHC.OFFVIS ---
Intake Visit Reasons: Migraine f/u Allergies No Known Allergies Allergy (Verified 10/17/24 15:28) Medication List - Last Reconciled 01/10/25 by Madeline Ojeda MD ibuprofen 400 mg PO Q8H multivitamin 1 tab PO DAILY sumatriptan succinate take 1 tab at onset of headache; if no relief, may repeat 1 tab after at least 2 hrs; max = 2 tabs/24 hrs PO HPI Comments Details: This is a 29-year-old right-handed woman in good health, who comes in for evaluation of headaches.? Her headaches are better, now down to once every other week. They are relieved in 2 hrs by Ibuprofen 400mg. She's had regular headache since high school , related to stress, and usually relieved by a couple of Tylenol.? Originally, these occurrd about once a week.? She also suffers from more severe migraine type headaches when she gets nausea, dizziness and photophobia. ?These are currently occurring about once a week and lasting 2 days.? She can function with the migraine ?after taking either ibuprofen or Tylenol.? There is no family history of migraine.? There is no aura preceding the headache.? Possible triggers include menstrual cycles, stress and lack of sleep.? She describes the migraine as a bilateral pounding headache with nausea and photophobia without an aura. Has some lack of sleep that may trigger headaches. [facility] Medical History (Updated 10/18/24 @ 09:32 by Madeline Ojeda MD) History of gallstones Uterine leiomyoma Surgical History (Updated 10/17/24 @ 15:46 by Madison Barragan MA) Hx laparoscopic cholecystectomy Family History (Updated 10/17/24 @ 15:31 by Madison Barragan MA) Mother Essential (primary) hypertension Father Mixed hyperlipidemia Maternal Grandmother Type 2 diabetes mellitus Maternal Grandfather Congestive heart failure Social History (Updated 10/17/24 @ 15:33 by Madison Barragan MA) Alcohol intake: current Comment: Occasional Patient Tobacco Use Status: Never used Tobacco Review of Systems Const Reports headache(s) ENT Reports headache(s) Neuro Reports headache(s) Psych Reports abnormal sleep pattern (Teeth grinding. Occasional difficulty falling asleep. Gets 6 hrs sleep) Physical Exam Neuro Other: Mini Mental Status Exam Level of Consciousness:?Alert.? Orientation:?Knows correct year, month, date, day and season,?Knows correct city, county and state. Knows correct location and floor.? Registration:?Able to register 3 objects.? Attention:?Serial 7's performed accurately.? Recall:?Able to recall 3 out of 3 objects.? Language:?Normal spontaneous speech, fluency, repetition, ,naming, comprehension, reading and writing.? Total Score:?30/30. Cognition (Neuro): normal cognition Gait exam (Neuro): Normal gait present Motor exam (neuro): 5/5 motor strength present throughout Sensory Exam: double simultaneous stimulation for sensation normal Deep tendon reflexes (DTR's): Right triceps reflex intensity grade: 2+, Left triceps reflex intensity grade: 2+, Rt Biceps (C5, C6): 2+, Left biceps reflex intensity grade: 2+, Right brachioradialis reflex intensity grade: 2+, Left brachioradialis reflex intensity grade: 2+, Right patellar reflex intensity grade: 2+, Left patellar reflex intensity grade: 2+, Right ankle reflex intensity grade: 2+ and Left ankle reflex intensity grade: 2+ Plantar Reflex Responses: downgoing: right and left Coordination: [id number] test normal Romberg Test: Negative Pupils: Normal pupillary reactivity/response: bilateral Assessment & Plan Assessment & Plan (1) Migraine without aura: Code(s): G43.009 - Migraine without aura, not intractable, without status migrainosus Category: Medical (2) Tension headache: Code(s): G44.209 - Tension-type headache, unspecified, not intractable Category: Medical Plan: continue current meds Plan Keep migraine calendar. Sumatriptan 100mg PRN for abortive therapy as prescribed Use Tylenol/ Ibuprofen for tension headache upto 4/ week Coding Level of Care Code Est Pt Level 4 (25990) Diagnoses Migraine without aura G43.009 Tension headache G44.209
--- OUTSIDE RECORDS SUMMARY | 2025-01-10 10:23 | XMS_ITS | Encounter Summary ---
Author Organization [facility] Address [address] [place] [address] Care Team Providers Care Detective Sergeant Name Role Phone Physician, Pcp Unknown Primary Care Provider Eli vailable Encounter Details Date Type Department Care Team (Latest Contact Info) Description 11/09/2024 Lab Requisition [facility] - Main Lab [address] [place] [address] Barak Durand MD [address] [address] Encounter for gynecological examination (general) (routine) without abnormal findings Social History Tobacco Use Types Packs/Day Years Used Date Smoking Tobacco: Never Assessed Comments Unknown Sex and Gender Information Value Date Recorded Sex Assigned at Not on file Legal Sex Female 9:58 AM EDT Gender Identity Not on file Sexual Orientation Not on file documented as of this encounter Plan of Treatment Not on file documented as of this encounter Procedures Procedure Name Priority Date/Time Associated Diagnosis Comments PAP SMEAR Routine 11/08/2024 12:00 AM EDT Encounter for gynecological examination (general) (routine) without abnormal findings documented in this encounter Results * Pap smear (11/08/2024 12:00 AM EDT) Interpretation Negative for intraepithelial lesion or malignancy 11/11/2024 3:50 PM EDT [facility] General Categorization Negative 11/11/2024 3:50 PM EDT [facility] LMP 11/11/2024 3:50 PM EDT [facility] Comment:10/2024 Specimen Adequacy Satisfactory for evaluation, endocervical/blnaco sformation zone component present 11/11/2024 3:50 PM EDT [facility] Pap Methodology Liquid Based Pap Test 11/11/2024 3:50 PM EDT [facility] Disclaimer The Pap test is a screening test which carries an inherent false negative rate. These test results should be correlated with the patient's clinical findings and history. This Pap test was processed using an automated screening system. Technical cytopathology services provided by [facility], at [address] [place] [address] (CLIA # [id number]/Carlene Garcia MD, Energy Project Engineer.) 11/11/2024 3:50 PM EDT [facility] Console Pap Interpretation Reported 11/11/2024 3:50 PM EDT [facility] Brushing/Spatula Cervix uteri structure / Unknown 11/08/2024 11/09/2024 6:51 AM EDT us Barak Durand MD LAB CYTOLOGY ORDERABLES Final Result [facility] [address] [place] [address], documented in this encounter Visit Diagnoses Diagnosis Encounter for gynecological examination (general) (routine) without abnormal findings documented in this encounter Care Teams Detective Sergeant Relationship Specialty Start Date End Date Physician, Pcp Unknown PCP - General 11/08/24 documented as of this encounter
--- OUTSIDE RECORDS SUMMARY | 2025-01-10 10:23 | XMS_ITS | Clinical Summary ---
Author Organization 299 [facility] Address [address] [place] [address] Phone Care Team Providers Care Education Research Analyst Name Role Phone Physician, Pcp Unknown Primary Care Provider Eli vailable Encounters Date Type Department Care Team Description 11/09/2024 Lab Requisition [facility] - Main Lab [address] [facility] [address] Barak Durand MD Encounter for gynecological examination (general) (routine) without abnormal findings from Last 3 Months Social History Tobacco Use Types Packs/Day Years Used Date Smoking Tobacco: Never Assessed Comments Unknown Sex and Gender Information Value Date Recorded Sex Assigned at Not on file Legal Sex Female 9:58 AM EDT Gender Identity Not on file Sexual Orientation Not on file Plan of Treatment Health Maintenance Due Date Last Done Comments Depression Screening 04/20/2024 Cholesterol Screening (Lipid Panel) 11/09/2024 HIV Screening 11/09/2024 Hepatitis C Screening 11/09/2024 Social Influencers of Health Screening 11/09/2024 COVID-19 Vaccine ( season) 2024 04/27/2021, 09/29/2020, 09/01/2020 Influenza Vaccine (#1) 2024 06/22/2024, 2021 Cervical Cancer Screening: Pap Smear 11/09/2027 11/08/2024 DTaP,Tdap,and Td Vaccines (8 - Td or Tdap) 05/24/2032 05/24/2022, 04/29/2007, 06/18/2000, Additional history exists RSV Immunization Adult Patients (1 - 1-dose 75+ series) 2070 HIB Vaccines Completed 08/30/1996, 11/19, 1995, Additional history exists IPV Vaccines Completed 06/18/2000, 11/19, 1995, Additional history exists Hepatitis A Vaccines Completed 12/05/2010, 09/28/19 10 Meningococcal ACWY Vaccine Completed 02/13/2012, HPV Vaccines Completed 05/04/2013, 01/19, 12/05/2010 Hepatitis B Vaccines Completed 08/05/2016, 03/03/1996, 1995, Additional history exists MMR Vaccines Completed 08/05/2016, 05/22, 08/30/1996 Meningococcal B Vaccine Aged Out No l onger eligible based on patient's age to complete this topic Pneumococcal Vaccine: Pediatrics (0 to 5 Years) and At-Risk Patients (6 to 49 Years) Aged Out No longer eligible based on patient's age to complete this topic RSV Immunization Patients Under 20 months Aged Out No longer eligible based on patient's age to complete this topic Varicella Vaccines Aged Out No longer eligible based on patient's age to complete this topic Procedures Procedure Name Priority Date/Time Associated Diagnosis Comments COMPLETE BLOOD COUNT Routine 11/08/2024 10:04 AM EDT Fibroids PAP SMEAR Routine 11/08/2024 12:00 AM EDT Encounter for gynecological examination (general) (routine) without abnormal findings from Last 3 Months Results * Complete blood count (11/08/2024 10:04 AM EDT) WBC 9.5 4.8 - 10.8 K/mcL LAB HEMETOLOGY METHOD 11/08/2024 11:04 AM EDT [facility] RBC 4.70 3.80 - 4.80 M/mcL LAB HEMETOLOGY METHOD 11/08/2024 11:04 AM EDT [facility] Hemoglobin 13.2 11.5 - 16.0 g/dL LAB HEMETOLOGY METHOD 11/08/2024 11:[address] [facility] Hematocrit 38.7 35.0 - 47.0 % LAB HEMETOLOGY METHOD 11/08/2024 11:[address] [facility] MCV 82.9 79.0 - 98.0 FL LAB HEMETOLOGY METHOD 11/08/2024 11:04 AM EDT [facility] MCH 28.3 27.0 - 32.0 pcg LAB HEMETOLOGY METHOD 11/08/2024 11:04 AM EDT [facility] MCHC 34.1 32.0 - 37.0 g/dL LAB HEMETOLOGY METHOD 11/08/2024 11:04 AM EDT [facility] RDW 12.8 11.0 - 15.0 % LAB HEMETOLOGY METHOD 11/08/2024 11:04 AM EDT [facility] Platelets 285 130 - 400 K/mcL LAB HEMETOLOGY METHOD 11/08/2024 11:04 AM EDT [facility] MPV 10.6 7.0 - 11.0 FL LAB HEMETOLOGY METHOD 11/08/2024 11:04 AM EDT [facility] NRBC 0.0 <1.0 % LAB HEMETOLOGY METHOD 11/08/2024 11:04 AM EDT [facility] NRBC Absolute 0.00 <0.10 K/mcL LAB HEMETOLOGY METHOD 11/08/2024 11:[address] [facility] Blood Venous blood specimen / Unknown Venipuncture / Unknown 11/08/2024 10:04 AM EDT 11/08/2024 10:55 AM EDT us Barak Durand MD LAB BLOOD ORDERABLES Final Res ult [facility] [address] [place] [address], * Pap smear (11/08/2024 12:00 AM EDT) Interpretation Negative for intraepithelial lesion or malignancy 11/11/2024 3:50 PM EDT [facility] General Categorization Negative 11/11/2024 3:50 PM EDT [facility] LMP 11/11/2024 3:50 PM EDT [facility] Comment:10/2024 Specimen Adequacy Satisfactory for evaluation, endocervical/blanco sformation zone component present 11/11/2024 3:50 PM EDT [facility] Pap Methodology Liquid Based Pap Test 11/11/2024 3:50 PM EDT [facility] Disclaimer The Pap test is a screening test which carries an inherent false negative rate. These test results should be correlated with the patient's clinical findings and history. This Pap test was processed using an automated screening system. Technical cytopathology services provided by [facility], at [address] [place] [address] (CLIA # [id number]/Carlene Garcia MD, Carton Machine Operator.) 11/11/2024 3:50 PM EDT [facility] Console Pap Interpretation Reported 11/11/2024 3:50 PM EDT [facility] Brushing/Spatula Cervix uteri structure / Unknown 11/08/2024 11/09/2024 6:51 AM EDT us Barak Durand MD LAB CYTOLOGY ORDERABLES Final Result [facility] [address] [place] [address], [place] [phone] from Last 3 Months Insurance [employer] Care Teams Education Research Analyst Relationship Specialty Start Date End Date Physician, Pcp Unknown PCP - General 11/08/24
== END 2025-01-10 09:20 | disposition home or self-care (01) ==
LOC: HO.HSM 09:02
PROVIDERS: PCP Family Medicine; Visit Provider Psychiatry & Neurology Neurology
DX: G43.009 Migraine without aura, not intractable, without status migrainosus (principal); G44.209 Tension-type headache, unspecified, not intractable
CPT/HCPCS: 99214